=== PATIENT | male | born 1980 | race Caucasian/White ===

== ENCOUNTER 2017-07-13 08:51 | Emergency (ER) | payer SELFPAY ==
[2017-07-13] MEDS ORDERED: NORCO 5/325 PO ONE (09:28)
--- NOTE | 2017-07-13 09:30 | Emergency Department Report ---
Chief Complaint: Urogenital-Male Stated Complaint: FLANK PAIN - HPI History of Present Illness: 37-year-old male presents with complaint of left-sided flank pain and dysuria since this morning with intermittent hematuria. Denies fever chills nausea or vomiting. Awake alert 3 nontoxic appearing, speaks Faroese which I speak fluently. - ROS Review of Systems: 1 day of hematuria and left flank pain radiating to groin - Exam Vital Signs: Vital Signs 07/13/17 07/13/17 08:58 09:04 Temperature 98.3 F 98.3 F Pulse Rate 72 72 Respiratory 16 16 Rate Blood Pressure 139/78 Blood Pressure 139/78 [Right] O2 Sat by Pulse 98 98 Oximetry Physical Exam: Left sided CVA tenderness and suprapubic tenderness on exam MSE screening note: Focused history and physical exam performed. Due to findings the following was ordered: Screening Assessment/Plan/Differential Dx: Left-sided flank pain possible kidney stone versus UTI 1- This initial assessment/diagnostic orders/clinical plan/ treatment(s) is/are subject to change based on pt's health status, clinical progression and re- assessment by fellow clinical providers in the ED. Further treatment and workup at subsequent clinical provers discretion. Patient/guardians urged not to elope from ED as their condition may be serious if not clinically assessed and managed. 2-urinalysis, BMP 3-pain control 4-CT noncontrast ED Disposition for MSE Condition: Stable
[2017-07-13 09:57] LABS: Bacteria,Urine 1+ /HPF (Negative); Bilirubin,Urine NEG (Negative); Blood,Urine LG (Negative); Ketones,Urine NEG (Negative); Leukocyte Esterase,Urine NEG (Negative); Mucus,Urine FEW /HPF; Nitrite,Urine NEG (Negative); Protein,Urine <15 mg/dL mg/dL (Negative); Urobilinogen,Urine < 2.0 mg/dL (<2.0)
[2017-07-13 10:19] LABS: Basophils % (Auto) 0.2 % (0.0-1.8); Eosinophils % (Auto) 0.1 % (0.0-4.3); Hemoglobin 16.5 gm/dl (11.8-15.2); Mean Corpuscular HGB Conc 34 % (32-34); Mean Corpuscular Hemoglobin 31 pg (28-32); Mean Corpuscular Volume 93 fl (84-94); Platelet Count 219 K/mm3 (140-440); Red Cell Distribution Width 12.4 % (13.2-15.2); White Blood Count 9.8 K/mm3 (4.5-11.0)
[2017-07-13 10:40] LABS: BUN/Creatinine Ratio 16.66; Blood Urea Nitrogen 10 mg/dL (9-20); Calcium 9.6 mg/dL (8.4-10.2); Carbon Dioxide 23 mmol/L (22-30); Chloride 102.8 mmol/L (98-107); Creatine Kinase 157 units/L (55-170); Glucose 111 mg/dL (75-100); Sodium 140 mmol/L (137-145)
[2017-07-13 11:25] LABS: Anion Gap 19 mmol/L; Potassium 4.7 mmol/L (3.6-5.0)
--- NOTE | 2017-07-13 11:25 | Cat Scan Report ---
CT ABDOMEN AND PELVIS WITHOUT CONTRAST INDICATION: Left flank pain. Evaluate for stone. COMPARISON: None similar at this institution. FINDINGS: Noncontrast abdomen and pelvis CT performed. LUNG BASES: Top normal heart size. Nonspecific distal esophageal wall prominence/thickening, not excluded for gastroesophageal reflux and/or hiatal hernia, amongst others. ABDOMEN: Please note that sensitivity to detect small visceral lesions is limited due to the absence of intravenous or oral contrast. However, grossly unremarkable unenhanced liver, spleen, gallbladder, pancreas, adrenals, aorta, IVC and the right kidney. No radiopaque intrarenal calculi, though mild left hydronephrosis and proximal hydroureter noted secondary to a 4 mm proximal ureteral calculus, axial image 171, series 2. No ascites or size significant adenopathy. Nonopacified GI tract evaluation limited, though grossly nonobstructive. However, approximately 1 foot long segment of distal small bowel in the lower abdomen/right lower quadrant filled with debris/stool, leading up to the ileocecal valve. Normal appendix. Moderate ascending colon stool with nonspecific suboptimal distention/exaggerated wall thickness about the hepatic flexure as on axial images 105-130, series 2. Mild remainder colonic stool. PELVIS: Urinary bladder, seminal vesicles, prostate and rectosigmoid within normal limits. No free fluid or significant adenopathy. Mild lower thoracic spine degenerative spurring. CONCLUSION: 1. Approximately 4 mm slightly obstructing left proximal ureteral calculus, as described. No additional nephrolithiasis noted. 2. Small bowel feces sign along the distal small bowel and ascending colon stool/possible constipation with nonspecific CT appearance of the ascending colon/hepatic flexure, as described. GI assessment as with barium enema may also be considered for further evaluation of the hepatic flexure region, if so warranted. 3. Few other incidental findings, as above. Thank you for the opportunity to participate in this patient's care.
--- NOTE | 2017-07-13 14:21 | Emergency Department Report ---
HPI - General Chief Complaint: Urogenital-Male Time Seen by Provider: 07/13/17 12:54 - HPI HPI: Patient is a 37-year-old male who presents to ED complaining of left-sided flank pain 1 day.He had an episode of blood in his urine. He denies fevers/chills/nausea/vomiting/abdominal pains is chest pain shortness of breath or any other problems. ED Past Medical Hx - Past Medical History Previous Medical History?: No - Surgical History Past Surgical History?: Yes Additional Surgical History: Testicle surgery - Social History Smoking Status: Never Smoker Substance Use Type: Alcohol - Medications Home Medications: Home Medications Medication Instructions Recorded Confirmed Last Taken Type Docusate Sodium [Colace] 100 mg PO BID PRN #20 capsule 07/13/17 Unknown Rx HYDROcodone/APAP 5-325 [[place] 1 each PO Q6HR PRN #10 tablet 07/13/17 Unknown Rx 5/325] Ibuprofen [Motrin] 800 mg PO Q8HR PRN #30 tablet 07/13/17 Unknown Rx Sulfamethoxazole/Trimethoprim 1 each PO BID #14 tablet 07/13/17 Unknown Rx [Bactrim DS TAB] Tamsulosin [Flomax] 0.4 mg PO QDAY #10 cap 07/13/17 Unknown Rx ED Review of Systems ROS: Stated complaint: FLANK PAIN Other details as noted in HPI Constitutional: denies: chills, fever Eyes: denies: eye pain, eye discharge, vision change ENT: denies: ear pain, throat pain Respiratory: denies: cough, shortness of breath, wheezing Cardiovascular: denies: chest pain, palpitations Endocrine: no symptoms reported Gastrointestinal: denies: abdominal pain, nausea, diarrhea Genitourinary: denies: urgency, dysuria Musculoskeletal: denies: back pain, joint swelling, arthralgia Skin: denies: rash, lesions Neurological: denies: headache, weakness, paresthesias Psychiatric: denies: anxiety, depression Hematological/Lymphatic: denies: easy bleeding, easy bruising Physical Exam - Physical Exam Vital Signs: Vital Signs 07/13/17 07/13/17 08:58 09:04 Temperature 98.3 F 98.3 F Pulse Rate 72 72 Respiratory 16 16 Rate Blood Pressure 139/78 Blood Pressure 139/78 [Right] O2 Sat by Pulse 98 98 Oximetry Physical Exam: GENERAL: Alert and oriented x3, no apparent distress, Normal Gait, atraumatic. HEAD: Head is normocephalic and a-traumatic. EYES: Extra ocular muscles are intact. Pupils are equal, round, and reactive to light and accommodation. NECK: Supple. Non edematous, No carotid bruits. No lymphadenopathy or thyromegaly. No C-spine tenderness LUNGS: Symetrical with respiration, No wheezing, no rales or crackles, CTAB. HEART: S1, S2 present, regular rate and rhythm without murmur, no rubs, no gallops. Non tender to palpation ABDOMEN: No organomegaly was noted,Positive bowel sounds, soft, and non- distended. . Nontender to palpation on all Quadrants, bilat CVA tenderness. BACK: Full range of motion, no spinal tenderness, nontender to palpation. SKIN: Warm and dry, No lesions, No ulceration or induration present. ED Course Vital Signs 07/13/17 07/13/17 08:58 09:04 Temperature 98.3 F 98.3 F Pulse Rate 72 72 Respiratory 16 16 Rate Blood Pressure 139/78 Blood Pressure 139/78 [Right] O2 Sat by Pulse 98 98 Oximetry ED Medical Decision Making - Lab Data Result diagrams: 07/13/17 09:41 07/13/17 09:41 Laboratory Last Values WBC 9.8 K/mm3 (4.5-11.0) 07/13/17 09:41 RBC 5.30 M/mm3 (3.65-5.03) H 07/13/17 09:41 Hgb 16.5 gm/dl (11.8-15.2) H 07/13/17 09:41 Hct 49.0 % (35.5-45.6) H 07/13/17 09:41 MCV 93 fl (84-94) 07/13/17 09:41 MCH 31 pg (28-32) 07/13/17 09:41 MCHC 34 % (32-34) 07/13/17 09:41 RDW 12.4 % (13.2-15.2) L 07/13/17 09:41 Plt Count 219 K/mm3 (140-440) 07/13/17 09:41 Lymph % (Auto) 10.5 % (13.4-35.0) L 07/13/17 09:41 Will % (Auto) 5.4 % (0.0-7.3) 07/13/17 09:41 Eos % (Auto) 0.1 % (0.0-4.3) 07/13/17 09:41 Baso % (Auto) 0.2 % (0.0-1.8) 07/13/17 09:41 Lymph # 1.0 K/mm3 (1.2-5.4) L 07/13/17 09:41 Will # 0.5 K/mm3 (0.0-0.8) 07/13/17 09:41 Eos # 0.0 K/mm3 (0.0-0.4) 07/13/17 09:41 Baso # 0.0 K/mm3 (0.0-0.1) 07/13/17 09:41 Seg Neutrophils % 83.8 % (40.0-70.0) H 07/13/17 09:41 Seg Neutrophils # 8.2 K/mm3 (1.8-7.7) H 07/13/17 09:41 Sodium 140 mmol/L (137-145) 07/13/17 09:41 Potassium 4.7 mmol/L (3.6-5.0) 07/13/17 09:41 Chloride 102.8 mmol/L (98-107) 07/13/17 09:41 Carbon Dioxide 23 mmol/L (22-30) 07/13/17 09:41 Anion Gap 19 mmol/L 07/13/17 09:41 BUN 10 mg/dL (9-20) 07/13/17 09:41 Creatinine 0.6 mg/dL (0.8-1.5) L 07/13/17 09:41 Estimated GFR > 60 ml/min 07/13/17 09:41 BUN/Creatinine Ratio 16.66 % 07/13/17 09:41 Glucose 111 mg/dL (75-100) H 07/13/17 09:41 Calcium 9.6 mg/dL (8.4-10.2) 07/13/17 09:41 Total Creatine Kinase 157 units/L (55-170) 07/13/17 09:41 Urine Color Straw (Yellow) 07/13/17 09:26 Urine Turbidity Clear (Clear) 07/13/17 09:26 Urine pH 6.0 (5.0-7.0) 07/13/17 09:26 Ur Specific [place] 1.008 (1.003-1.030) 07/13/17 09:26 Urine Protein <15 mg/dl mg/dL (Negative) 07/13/17 09:26 Urine Glucose (UA) Neg mg/dL (Negative) 07/13/17 09:26 Urine Ketones Neg mg/dL (Negative) 07/13/17 09:26 Urine Blood Lg (Negative) 07/13/17 09:26 Urine Nitrite Neg (Negative) 07/13/17 09:26 Urine Bilirubin Neg (Negative) 07/13/17 09:26 Urine Urobilinogen < 2.0 mg/dL (<2.0) 07/13/17 09:26 Ur Leukocyte Esterase Neg (Negative) 07/13/17 09:26 Urine WBC (Auto) 1.0 /HPF (0.0-6.0) 07/13/17 09:26 Urine RBC (Auto) 10.0 /HPF (0.0-6.0) 07/13/17 09:26 Urine Bacteria (Auto) 1+ /HPF (Negative) 07/13/17 09:26 Urine Mucus Few /HPF 07/13/17 09:26 - Radiology Data Radiology results: report reviewed, image reviewed c: SINGH ZHENG CT ABDOMEN AND PELVIS WITHOUT CONTRAST INDICATION: Left flank pain. Evaluate for stone. COMPARISON: None similar at this institution. FINDINGS: Noncontrast abdomen and pelvis CT performed. LUNG BASES: Top normal heart size. Nonspecific distal esophageal wall prominence/thickening, not excluded for gastroesophageal reflux and/or hiatal hernia, amongst others. ABDOMEN: Please note that sensitivity to detect small visceral lesions is limited due to the absence of intravenous or oral contrast. However, grossly unremarkable unenhanced liver, spleen, gallbladder, pancreas, adrenals, aorta, IVC and the right kidney. No radiopaque intrarenal calculi, though mild left hydronephrosis and proximal hydroureter noted secondary to a 4 mm proximal ureteral calculus, axial image 171, series 2. No ascites or size significant adenopathy. Nonopacified GI tract evaluation limited, though grossly nonobstructive. However, approximately 1 foot long segment of distal small bowel in the lower abdomen/right lower quadrant filled with debris/stool, leading up to the ileocecal valve. Normal appendix. Moderate ascending colon stool with nonspecific suboptimal distention/exaggerated wall thickness about the hepatic flexure as on axial images 105-130, series 2. Mild remainder colonic stool. PELVIS: Urinary bladder, seminal vesicles, prostate and rectosigmoid within normal limits. No free fluid or significant adenopathy. Mild lower thoracic spine degenerative spurring. CONCLUSION: 1. Approximately 4 mm slightly obstructing left proximal ureteral calculus, as described. No additional nephrolithiasis noted. 2. Small bowel feces sign along the distal small bowel and ascending colon stool/possible constipation with nonspecific CT appearance of the ascending colon/hepatic flexure, as described. GI assessment as with barium enema may also be considered for further evaluation of the hepatic flexure region, if so warranted. 3. Few other incidental findings, as above. Thank you for the opportunity to participate in this patient's care. Transcribed By: RS Dictated By: GENTRY CAMPOS MD Electronically Authenticated By: GENTRY CAMPOS MD Signed Date/Time: 07/13/17 1121 - Medical Decision Making 37-year-old male presents with renal stones ED course: Patient received pain control in ED CBC, CMP, urinalysis, CT scan of the abdomen and pelvis was ordered CT scan results above Discussed findings with the patient. Discussed patient to follow up with explosive operator as discussed. Discussed home medications of antibiotics and pain control. Discussed patient that at any time stone that has become very painful. Patient states he understands Vital signs are normal patient is in no acute distress. My colleague SINGH Rae translated all instructions to the patient and he states Prt understands all instructions given and will follow-up Critical care attestation.: If time is entered above; I have spent that time in minutes in the direct care of this critically ill patient, excluding procedure time. ED Disposition Clinical Impression: Renal calculus, left, UTI (urinary tract infection), uncomplicated Constipation Qualifiers: Constipation type: other constipation type Qualified Code(s): K59.09 - Other constipation Disposition: - TO HOME OR SELFCARE Is pt being admited?: No Does the pt Need Aspirin: No Condition: Stable Instructions: Constipation (ED), Kidney Stones (ED), Urinary Tract Infection in Men (ED), High Fiber Diet (ED), How to Strain Your Urine (ED) Prescriptions: Docusate Sodium [Colace] 100 mg PO BID PRN #20 capsule PRN Reason: Constipation HYDROcodone/APAP 5-325 [[place] 5/325] 1 each PO Q6HR PRN #10 tablet PRN Reason: Pain Ibuprofen [Motrin] 800 mg PO Q8HR PRN #30 tablet PRN Reason: Pain Sulfamethoxazole/Trimethoprim [Bactrim DS TAB] 1 each PO BID #14 tablet Tamsulosin [Flomax] 0.4 mg PO QDAY #10 cap Referrals: PRIMARY CAREMD [Primary Care Provider] - 3-5 Days ROGE COX MD [Staff Physician] - 3-5 Days SHAYNE ALANIZ MD, PHD [Referring] - 3-5 Days LISA CHOWDHURY MD [Referring] - 3-5 Days Forms: Work/School Release Form(ED) Time of Disposition: 14:48
[2017-07-13] MEDS ORDERED: TORADOL IM ONE (14:36)
[2017-07-13 15:23] VITALS: BP 126/78
== END 2017-07-13 15:23 | disposition home or self-care (01) ==
LOC: ED 08:51
DX: K59.09 Other constipation (principal); N20.0 Calculus of kidney; N39.0 Urinary tract infection, site not specified
CPT/HCPCS: 36415; 74176; 80048; 81001; 82550; 85025; 87086; 96372; 99284; J1885

== ENCOUNTER 2017-07-30 12:10 | Emergency (ER) | payer OTHER ==
[2017-07-30 12:55] LABS: Bilirubin,Urine NEG (Negative); Blood,Urine LG (Negative); Ketones,Urine NEG (Negative); Leukocyte Esterase,Urine NEG (Negative); Nitrite,Urine NEG (Negative); Protein,Urine <15 mg/dL mg/dL (Negative); Urobilinogen,Urine < 2.0 mg/dL (<2.0)
[2017-07-30 13:10] LABS: Basophils % (Auto) 0.3 % (0.0-1.8); Eosinophils % (Auto) 0.1 % (0.0-4.3); Hematocrit 46.4 % (35.5-45.6); Hemoglobin 15.6 gm/dl (11.8-15.2); Mean Corpuscular HGB Conc 34 % (32-34); Mean Corpuscular Hemoglobin 31 pg (28-32); Mean Corpuscular Volume 91 fl (84-94); Platelet Count 243 K/mm3 (140-440); Red Blood Count 5.08 M/mm3 (3.65-5.03); Red Cell Distribution Width 12.6 % (13.2-15.2); White Blood Count 14.5 K/mm3 (4.5-11.0)
[2017-07-30 13:20] LABS: Alanine Aminotransferase 35 units/L (7-56); Albumin 4.5 g/dL (3.9-5); Albumin/Globulin Ratio 1.3 %; Alkaline Phosphatase 85 units/L (35-129); Anion Gap 16 mmol/L; BUN/Creatinine Ratio 16; Blood Urea Nitrogen 14 mg/dL (9-20); Calcium 9.3 mg/dL (8.4-10.2); Carbon Dioxide 26 mmol/L (22-30); Chloride 97.8 mmol/L (98-107); Glucose 105 mg/dL (75-100); Lipase 31 units/L (13-60); Potassium 4.1 mmol/L (3.6-5.0); Sodium 136 mmol/L (137-145); Total Protein 7.9 g/dL (6.3-8.2)
[2017-07-30] MEDS ORDERED: ZOFRAN IV ONE (21:20)
[2017-07-30] MEDS ORDERED: TORADOL IV ONE (21:20)
[2017-07-30] MEDS ORDERED: TORADOL ONE (21:25)
[2017-07-31] MEDS ORDERED: NACL 0.9% 1000 ML 1,000 ML IV ONE
[2017-07-31] MEDS ORDERED: MORPHINE IV ONE (00:03)
--- NOTE | 2017-07-31 00:45 | Cat Scan Report ---
FINAL REPORT EXAM: CT ABDOMEN PELVIS WO CON HISTORY: left flank pain TECHNIQUE: Routine axial imaging was obtained of the abdomen pelvis without IV or oral contrast. Comparison is made to the previous study of 07/13/2017. FINDINGS: There is a partially obstructing 5 millimeter stone in the midleft ureter which has descended slightly since the previous study. There is proximal moderate hydronephrosis with perinephric stranding. There are no additional renal calculi. The lung bases are clear. The liver, gallbladder, pancreas, spleen, and adrenal glands appear normal. The bowel loops are normal in caliber and course. The appendix is not identified. There is no evidence of free fluid or adenopathy. In the pelvis the prostate gland and bladder appear normal. The skeletal structures are unremarkable. IMPRESSION: Moderate left-sided hydronephrosis secondary to a partially obstructing stone in the mid left ureter measuring 5 millimeters in dimension. The position of the stone has descended slightly since the previous study. No additional renal stones identified.
--- NOTE | 2017-07-31 01:42 | Emergency Department Report ---
ED Abdominal Pain HPI - General Chief Complaint: Abdominal Pain Stated Complaint: LOWER ABDOMINAL PAIN Time Seen by Provider: 07/30/17 23:59 Source: patient Mode of arrival: Ambulatory Limitations: Language Barrier - History of Present Illness Initial Comments: Patient is a 37-year-old male with past medical history of kidney stones. Who presents with left flank pain. Patient's left flank pain is a 6 out of 10 as constant colicky intermittent pain that radiates to his groin. Patient states that urinating makes it worse nothing makes it better. He states this is similar to the pain he's had about 2 weeks ago. He was diagnosed a kidney stone and sent home. He states that the pain hasn't gotten that much better. Patient denies having any nausea or vomiting. History obtained by weaver dobby loom Severity scale (0 -10): 10 - Related Data Previous Rx's Medication Instructions Recorded Last Taken Type Docusate Sodium [Colace] 100 mg PO BID PRN #20 capsule 07/13/17 Unknown Rx Ibuprofen [Motrin] 800 mg PO Q8HR PRN #30 tablet 07/13/17 Unknown Rx Sulfamethoxazole/Trimethoprim 1 each PO BID #14 tablet 07/13/17 Unknown Rx [Bactrim DS TAB] HYDROcodone/APAP 5-325 [[place] 1 each PO Q6HR PRN #13 tablet 07/31/17 Unknown Rx 5-325 mg TAB] Naproxen 250 mg PO BID #20 tablet 07/31/17 Unknown Rx Tamsulosin [Flomax] 0.4 mg PO QDAY #10 cap 07/31/17 Unknown Rx Allergies Allergy/AdvReac Type Severity Reaction Status Date / Time No Known Allergies Allergy Verified 07/30/17 12:11 ED Review of Systems ROS: Stated complaint: LOWER ABDOMINAL PAIN Other details as noted in HPI Constitutional: denies: chills, fever Eyes: denies: eye pain, eye discharge, vision change ENT: denies: ear pain, throat pain Respiratory: denies: cough, shortness of breath, wheezing Cardiovascular: denies: chest pain, palpitations Endocrine: no symptoms reported Gastrointestinal: other (flank pain). denies: abdominal pain, nausea, diarrhea Genitourinary: denies: urgency, dysuria Musculoskeletal: denies: back pain, joint swelling, arthralgia Skin: denies: rash, lesions Neurological: denies: headache, weakness, paresthesias Psychiatric: denies: anxiety, depression Hematological/Lymphatic: denies: easy bleeding, easy bruising ED Past Medical Hx - Past Medical History Hx Kidney Stones: Yes - Surgical History Past Surgical History?: Yes Additional Surgical History: Testicle surgery - Social History Smoking Status: Never Smoker Substance Use Type: Alcohol - Medications Home Medications: Home Medications Medication Instructions Recorded Confirmed Last Taken Type Docusate Sodium [Colace] 100 mg PO BID PRN #20 capsule 07/13/17 Unknown Rx Ibuprofen [Motrin] 800 mg PO Q8HR PRN #30 tablet 07/13/17 Unknown Rx Sulfamethoxazole/Trimethoprim 1 each PO BID #14 tablet 07/13/17 Unknown Rx [Bactrim DS TAB] HYDROcodone/APAP 5-325 [[place] 1 each PO Q6HR PRN #13 tablet 07/31/17 Unknown Rx 5-325 mg TAB] Naproxen 250 mg PO BID #20 tablet 07/31/17 Unknown Rx Tamsulosin [Flomax] 0.4 mg PO QDAY #10 cap 07/31/17 Unknown Rx ED Physical Exam - General Limitations: Language Barrier General appearance: alert, in no apparent distress - Head Head exam: Present: atraumatic, normocephalic - Eye Eye exam: Present: normal appearance - ENT ENT exam: Present: mucous membranes moist - Neck Neck exam: Present: normal inspection - Respiratory Respiratory exam: Present: normal lung sounds bilaterally. Absent: respiratory distress - Cardiovascular Cardiovascular Exam: Present: regular rate, normal rhythm. Absent: systolic murmur, diastolic murmur, rubs, gallop - GI/Abdominal GI/Abdominal exam: Present: soft, normal bowel sounds - Rectal Rectal exam: Present: deferred - Extremities Exam Extremities exam: Present: normal inspection - Back Exam Back exam: Present: normal inspection - Neurological Exam Neurological exam: Present: alert, oriented X3 - Psychiatric Psychiatric exam: Present: normal affect, normal mood - Skin Skin exam: Present: warm, dry, intact, normal color. Absent: rash ED Course Vital Signs 07/30/17 07/30/17 12:13 21:06 Temperature 98.4 F 98.6 F Pulse Rate 64 77 Respiratory 18 22 Rate Blood Pressure 143/95 149/92 O2 Sat by Pulse 97 98 Oximetry ED Medical Decision Making - Lab Data Result diagrams: 07/30/17 12:41 07/30/17 12:41 Lab Results 07/30/17 07/30/17 07/30/17 Range/Units 12:17 12:41 12:41 WBC 14.5 H (4.5-11.0) K/mm3 RBC 5.08 H (3.65-5.03) M/mm3 Hgb 15.6 H (11.8-15.2) gm/dl Hct 46.4 H (35.5-45.6) % MCV 91 (84-94) fl MCH 31 (28-32) pg MCHC 34 (32-34) % RDW 12.6 L (13.2-15.2) % Plt Count 243 (140-440) K/mm3 Lymph % (Auto) 6.8 L (13.4-35.0) % [place] % (Auto) 6.3 (0.0-7.3) % Eos % (Auto) 0.1 (0.0-4.3) % Baso % (Auto) 0.3 (0.0-1.8) % Lymph # 1.0 L (1.2-5.4) K/mm3 [place] # 0.9 H (0.0-0.8) K/mm3 Eos # 0.0 (0.0-0.4) K/mm3 Baso # 0.0 (0.0-0.1) K/mm3 Seg Neutrophils % 86.5 H (40.0-70.0) % Seg Neutrophils # 12.6 H (1.8-7.7) K/mm3 Sodium 136 L (137-145) mmol/L Potassium 4.1 (3.6-5.0) mmol/L Chloride 97.8 L (98-107) mmol/L Carbon Dioxide 26 (22-30) mmol/L Anion Gap 16 mmol/L BUN 14 (9-20) mg/dL Creatinine 0.9 (0.8-1.5) mg/dL Estimated GFR > 60 ml/min BUN/Creatinine Ratio 16 % Glucose 105 H (75-100) mg/dL Calcium 9.3 (8.4-10.2) mg/dL Total Bilirubin 0.50 (0.1-1.2) mg/dL AST 31 (5-40) units/L ALT 35 (7-56) units/L Alkaline Phosphatase 85 (35-129) units/L Total Protein 7.9 (6.3-8.2) g/dL Albumin 4.5 (3.9-5) g/dL Albumin/Globulin Ratio 1.3 % Lipase 31 (13-60) units/L Urine Color Straw (Yellow) Urine Turbidity Clear (Clear) Urine pH 6.0 (5.0-7.0) Ur Specific [place] 1.006 (1.003-1.030) Urine Protein <15 mg/dl (Negative) mg/dL Urine Glucose (UA) Neg (Negative) mg/dL Urine Ketones Neg (Negative) mg/dL Urine Blood Lg (Negative) Urine Nitrite Neg (Negative) Urine Bilirubin Neg (Negative) Urine Urobilinogen < 2.0 (<2.0) mg/dL Ur Leukocyte Esterase Neg (Negative) Urine WBC (Auto) 1.0 (0.0-6.0) /HPF Urine RBC (Auto) 3.0 (0.0-6.0) /HPF - Radiology Data Radiology results: report reviewed, image reviewed CT scan: Shows left 5 mm kidney stone slightly distended from previous position. - Medical Decision Making Chief medical diagnosis: Left kidney stone Differential medical diagnosis: UTI, pancreatitis, cholelithiasis CBC, CMP, CT scan, IV pain medication, lipase Patient has a 5 mm kidney stone patient will be sent home and given discharge retractions for urology. Discussed via weaver dobby loom return precautions and that patient will need to make an appointment with Dr. Murillo the urologist. Additional verbal discharge instructions were given. Critical care attestation.: If time is entered above; I have spent that time in minutes in the direct care of this critically ill patient, excluding procedure time. ED Disposition Clinical Impression: Kidney stone on left side, Left flank pain Disposition: DC-01 TO HOME OR SELFCARE Is pt being admited?: No Does the pt Need Aspirin: No Condition: Stable Instructions: Kidney Stones (ED), Renal Colic (ED) Additional Instructions: Llame al dixonero del Dr. Lidia thornton para programar amie luigi con el urlogo. Pen [place] ko medicamentos segn las indicaciones. Prescriptions: HYDROcodone/APAP 5-325 [[place] 5-325 mg TAB] 1 each PO Q6HR PRN #13 tablet PRN Reason: Pain Naproxen 250 mg PO BID #20 tablet Tamsulosin [Flomax] 0.4 mg PO QDAY #10 cap Referrals: WILLIAM MURILLO MD [Staff Physician] - 3-5 Days Print Language: B[place]
[2017-07-31 03:01] VITALS: BP 139/86
== END 2017-07-31 02:30 | disposition home or self-care (01) ==
LOC: ED 12:10
DX: N20.0 Calculus of kidney (principal); R10.30 Lower abdominal pain, unspecified
CPT/HCPCS: 36415; 74176; 80053; 81001; 83690; 85025; 96374; 96375; 99284; J1885; J2405